=== PATIENT | female | born 1935 | race Caucasian/White ===

== ENCOUNTER → 2019-11-12 | Outpatient (CLI) | payer MEDICARE, OTHER ==
[~2019-11-12] MED LIST: CALC600T4 PO; CARBOPLATIN; FOLI1TAB16 PO; HYDR12.575 PO; LEVO100T5 PO; OMEP20TA63 PO; ONDA8TAB9 PO; TAXOL
--- NOTE | 2019-11-12 09:04 | RAD ---
DUPLEX SONOGRAPHY OF THE PERIPHERAL ARTERIAL SYSTEM OF BOTH LOWER EXTREMITIES Clinical indications: Peripheral vascular disease. Findings: Duplex sonography of the peripheral arterial system of both lower extremities including blood scale and color flow and spectral waveform analysis was performed.Triphasic waveforms are seen. No occlusive disease is seen. No significant plaque formation or stenosis is identified. The measurements were performed using the NASCET criteria. Peak systolic flow velocities are as follows: Right leg: common femoral artery- 100 cm/sec, profunda femoral artery -77 cm/sec, proximal superficial femoral artery -95 cm/sec, mid superficial femoral artery -98 cm/sec, distal superficial femoral artery- 126 cm/sec, popliteal artery -80 cm/sec, proximal posterior tibial artery- 87 cm/sec, distal posterior tibial artery- 73 cm/sec, peroneal artery- 35 cm/sec, anterior tibial artery- 108 cm/sec, dorsalis pedis artery -93 cm/sec. Left leg: common femoral artery- 119 cm/sec, profunda femoral artery -61 cm/sec, proximal superficial femoral artery- 129cm/sec, mid superficial femoral artery- 122 cm/sec, distal superficial femoral artery- 113 cm/sec, popliteal artery -55 cm/sec, proximal posterior tibial artery -113 cm/sec, distal posterior tibial artery- 114 cm/sec, peroneal artery -70 cm/sec, anterior tibial artery -91 cm/sec, dorsalis pedis artery- 122 cm/sec. Impression: No significant peripheral arterial vascular disease is seen by duplex sonographic evaluation. Electronically signed by: Yinka Martinez MD (11/12/2019 9:01 AM) [facility]
--- NOTE | 2019-11-12 13:36 | RAD ---
STUDY: MRI of the left foot without contrast INDICATION: Osteomyelitis evaluation. COMPARISON: None available. TECHNIQUE: Multiplanar MR imaging of the left foot performed without the use of intravenous contrast. FINDINGS: The [id number] extends from the distal aspect of the hindfoot through the forefoot. A few sequences are degraded by motion. Additionally, incomplete fat suppression on the T2-weighted sequences hinders evaluation for marrow edema. Flexion deformities of the toes. Advanced arthrosis at the great toe MTP joint. The medial hallux sesamoid is not identified. Marrow edema involving the proximal phalanx of the fifth toe and potentially be intermediate phalanx as well. This is seen on image 5 series 10. There is a joint effusion at the PIP joint and to a lesser degree at the DIP joint. Subtle cortical discontinuity along the shaft of the proximal phalanx as seen on image 13 series 6 and image 13 series 7. No discrete sinus tract or fluid collection seen adjacent to the fifth toe MTP joint are proximal phalanx though subtle ulcerative changes would be difficult to visualize. Fluid between the second and third and third and fourth metatarsal heads as be seen with intermetatarsal bursitis. Multifocal muscular fatty infiltration as well as edema signal. Scattered subcutaneous edema. IMPRESSION: 1. The study is degraded due to motion artifact on multiple sequences as well as due to incomplete fat suppression. Limited evaluation for a drainable fluid collection given no intravenous contrast. 2. Marrow edema involving the proximal phalanx of the fifth toe which is favored related to a very subtle nondisplaced fracture. Associated small effusions at the adjacent MTP and PIP joints and surrounding soft tissue edema. Osteomyelitis to account for this appearance is considered unlikely as there is no corresponding T1 signal loss at the site of marrow edema or obvious sinus tract or fluid collection adjacent to the bone.. 3. Multiple flexion deformities of the toes without obvious superimposed dislocation. This would be better assessed with weightbearing radiographs. 4. Additional chronic findings as above. Electronically signed by: NITO TAYLOR MD (11/12/2019 1:33 PM) [facility]
== END | disposition home or self-care (01) ==
LOC: US 07:36
PROVIDERS: ATTEND Podiatrist Foot & Ankle Surgery
DX: I73.9 Peripheral vascular disease, unspecified (principal); Z90.89 Acquired absence of other organs; Z90.49 Acquired absence of other specified parts of digestive tract; Z90.710 Acquired absence of both cervix and uterus
CPT/HCPCS: 73718; 93925

== ENCOUNTER → 2019-12-23 | Outpatient (CLI) | payer MEDICARE ==
[~2019-12-23] MED LIST changes: +GADOTERATE 7.5 MMOL/15ML VIAL. IVP ONE
--- NOTE | 2019-12-23 12:01 | RAD ---
EXAM: MRI ABDOMEN WITH AND WITHOUT CONTRAST. HISTORY: Liver lesions, lung cancer. TECHNIQUE: MRI of the abdomen was performed before and after the intravenous administration of 12 mL Dotarem. COMPARISON: 05/28/2019, 03/03/2019. FINDINGS: Liver: Hepatic parenchymal signal loss on opposed phase images indicates mild diffuse hepatic steatosis. A heterogeneous septated and rim-enhancing mass in hepatic segment 2 measures 5.0 x 3.6 cm. This appears increased since 03/03/2019. Another similar focus is noted laterally in segment 6 and measures 2.7 x 1.7 cm and is not clearly changed. Other scattered foci of arterial enhancement in both lobes are not clearly changed and may represent regions of vascular shunting. Other nonenhancing T2 hyperintense lesions are consistent with benign cysts. Biliary tree: The gallbladder is surgically absent. The common duct is not dilated. There are no suspicious pancreatic parenchymal lesions. The pancreatic duct is not dilated. Other findings: A benign cyst at the left renal lower pole measures 3.5 cm. Scarlike posttreatment changes are noted in the right perihilar region. The adrenal glands and spleen are unremarkable. IMPRESSION: 1. A complicated cystic mass in hepatic segment 2 has increased in size since prior studies and is concerning for metastatic deposit. Percutaneous biopsy could confirm this if the diagnosis remains unclear. 2. Other hepatic lesions are indeterminate by characteristics, but are not clearly changed and may represent benign lesions. Recommend attention on further follow-up. Electronically signed by: Michelle Travis MD (12/23/2019 11:58 AM) [facility]
== END | disposition home or self-care (01) ==
LOC: MRI 10:16
PROVIDERS: ATTEND Internal Medicine Hematology & Oncology
DX: N28.1 Cyst of kidney, acquired (principal); K76.0 Fatty (change of) liver, not elsewhere classified; K76.9 Liver disease, unspecified; Z85.118 Personal history of other malignant neoplasm of bronchus and lung
CPT/HCPCS: 74183; A9575

== ENCOUNTER 2019-12-28 06:52 | Outpatient (CLI) | payer MEDICARE ==
[2019-12-28] VITALS (12 sets, daily range): BP systolic 115–146; BP diastolic 67–87
[~2019-12-28] VITALS: Ht 162.6 cm; Wt 61.2 kg
[~2019-12-28 06:52] MED LIST changes: -GADOTERATE 7.5 MMOL/15ML VIAL. IVP ONE
[2019-12-28] MEDS ORDERED: LEVO125T5 PO (07:42)
[2019-12-28] MEDS ORDERED: MULT-246 PO (07:42)
[2019-12-28] MEDS ORDERED: VIT1TABL2 PO (07:42)
[2019-12-28] MEDS ORDERED: TRAM50TA PO (07:42)
[2019-12-28 07:49] LABS: CALCIUM 9.1 mg/dL (8.5-10.1); CREATININE 0.7 mg/dL (0.6-1.0); GFR 80.1; POTASSIUM 3.9 mmol/L (3.5-5.1)
[2019-12-28 07:54] LABS: BASO % 1 % (0-3); EOS # 0.1 x10^3/uL (0.0-0.7); EOS % 2 % (0-3); HEMOGLOBIN 12.9 g/dL (12.0-15.5); LYMPH # 0.4 x10^3/uL (1.0-4.8); LYMPH % 10 % (24-48); MEAN CORPUSCULAR HEMOGLOBIN 30 pg (25-35); MEAN CORPUSCULAR HGB CONC 34 g/dL (31-37); MEAN CORPUSCULAR VOLUME 87 fL (79-100); MONO # 0.3 x10^3/uL (0.0-1.1); MONO % 8 % (0-9); NEUT # 3.1 x10^3/uL (1.8-7.7); NEUT % 79 % (31-73); PLATELET COUNT 192 x10^3/uL (140-400); RED BLOOD COUNT 4.39 x10^6/uL (3.50-5.40); RED CELL DISTRIBUTION WIDTH 15.1 % (11.5-14.5)
[2019-12-28 07:55] LABS: ALBUMIN 3.6 g/dL (3.4-5.0); ALBUMIN/GLOBULIN RATIO 1.1 (1.0-1.7); TOTAL BILIRUBIN 0.4 mg/dL (0.2-1.0); TOTAL PROTEIN 6.9 g/dL (6.4-8.2)
[2019-12-28 08:04] LABS: PROTHROMBIN TIME PATIENT 13.8 SEC (11.7-14.0)
[2019-12-28] MEDS ORDERED: fentaNYL PF VIAL 100 MCG/2 ML VIAL ONE (08:26)
[2019-12-28] MEDS ORDERED: MIDAZOLAM HCL/PF 2 MG/2 ML VIAL. ONE (08:26)
[2019-12-28] MEDS ORDERED: LIDOCAINE WITH 8.4% SOD BICARB 3 ML DISP.SYRIN. ONE (08:27)
[2019-12-28] MEDS ORDERED: GELATIN SPONGE SIZE 12-7MM SPONGE. ONE (08:30)
[2019-12-28] MEDS ORDERED: MIDAZOLAM HCL/PF 2 MG/2 ML VIAL. IV ONE (09:00)
[2019-12-28] MEDS ORDERED: LIDOCAINE WITH 8.4% SOD BICARB 3 ML DISP.SYRIN. IJ ONE (09:00)
[2019-12-28] MEDS ORDERED: fentaNYL PF VIAL 100 MCG/2 ML VIAL IV ONE (09:00)
--- NOTE | 2019-12-28 11:30 | NUR ---
Discharge Note: JESSIE BERMUDEZ Discharge instructions and discharge home medications reviewed with Patient and daughter Elba; and a copy given. All questions have been answered and understanding verbalized. The following instructions and handouts were given: Liver biopsy and post moderate sedation Discontinued lines and drains: Right FA IV DC'd and tip intact. Patient discharged to home with daughter via car. Mid upper abdominal bandaide c/d/i. Pt denies any pain or SOB.
--- NOTE | 2019-12-28 17:08 | RAD ---
Ultrasound-guided biopsy, left hepatic mass 12/28/2019 INDICATION: Left hepatic mass, with irregular enhancement demonstrated on recent MRI. History of lung cancer. Discussion: The procedure was explained in its entirety to the patient or the patients designated chemical sales representative by a member of the treatment team, including a discussion of the risks, benefits and commonly accepted alternatives to the procedure, as well as the expected consequences of no therapy whatsoever. Discussion of the risks included, but was not limited to, those that are most frequent and those that are rare but possibly severe or life-threatening, as well as the possibility of unforeseen complications. All elements of maximal sterile barrier technique including the use of a cap, mask, sterile gown, sterile gloves, large sterile sheet, appropriate hand hygiene, and 2% chlorhexidine for cutaneous antisepsis (or acceptable alternative antiseptic per current guidelines) were followed for this procedure. Ultrasound evaluation demonstrates an irregular mass in the left hepatic lobe, similar to prior imaging exams. The overlying skin was prepped and draped as described. 1% lidocaine was administered for local anesthesia. Under direct ultrasound guidance a 17-gauge needle was advanced to the mass. Core biopsy samples were obtained and placed in formalin. Gelfoam embolization of the biopsy tract was performed as a guiding needle was removed. No immediate complications were identified. The procedures performed under conscious sedation including continuous cardiopulmonary monitoring via dedicated sedation nurse. [id number]-[id number] sedation time: 30 minutes Impression: Ultrasound-guided biopsy, left hepatic mass
--- NOTE | 2020-01-04 14:07 | PATHOLOGY ---
[facility] Accession Number: [id number] . 01 Material submitted: . liver - LIVER MASS CORE BIOPSY . 01 Clinical history: . Liver mass . 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 See comment. (JPM:[facility] 01/04/2020) P 01/04/2020 1034 Local . 02 Comment: Sections of the liver mass CT guided needle biopsy show extensive replacement of liver parenchyma by a malignant neoplasm. The malignant cells have an epitheloid appearance and reside within a focally edematous stroma. The malignant cells have moderate amounts of eosinophilic cytoplasm, and possess enlarged, rounded, ovoid, and irregular moderately pleomorphic hyperchromatic nuclei containing prominent nucleoli. There is focal necrosis and acute inflammation. Mitotic figures are present. There is no evidence of squamous differentiation or gland formation. A panel of immunoperoxidase stains is obtained on block A1 and yields the following results: . Vimentin: Tumor cells positive Cytokeratin BRANDON: Tumor cells negative; hepatocytes positive Cytokeratin 7: Tumor cells negative; residual bile ducts positive Cytokeratin 20: Tumor cells negative CDX2: Tumor cells negative TTF-1: Tumor cells negative Napsin A: Tumor cells negative Hepatocyte specific antigen: Tumor cells negative; residual hepatic parenchyma positive CD68: Tumor cells largely appear negative; inflammatory cells positive CD117: Tumor cells negative Smooth muscle Actin: Tumor cells negative De La Garza-girish Red: Tumor cells negative CD21: Tumor cells negative Synaptophysin: Tumor cells negative . 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 Being unable to further classify the lesion, the case is being forwarded to the [facility] for expert consultation. An addendum report will be issued following their examination. The case is also examined by Dr. Felton, who concurs with the diagnosis. (JPM:pit 01/04/2020) . Special stains performed: Immunoperoxidase stain for vimentin, cytokeratin BRANDON, CK7, CK20, CDX2, TTF-1, napsin A, hepatocyte specific antigen, CD68, CD117, smooth muscle Actin, de la garza-girish red, CD21, and synaptophysin . 02 Electronically signed: . Naeem Suresh MD, Pathologist NPI- [id number] . 01 Gross description: . The specimen is received in formalin, labeled "Grace Rashid, liver biopsy". Received are two needle cores of pale patel soft tissue ranging in length from 1.0 to 1.6 cm in length by 0.1 cm in diameter. The specimen is submitted entirely in cassette A1 and A2. (CAA; 12/28/2019) QA/QA 01/04/2020 1025 Local . 02 Pathologist provided ICD-10: C22.9 . 02 CPT . 245605, L29671, [id number] Specimen Comment: A courtesy copy of this report has been sent to [phone], [phone] Specimen Comment: [id number], Specimen Comment: Report sent to ,DR HAHN / DR PORTER Performed at: 01 [facility] [address], [place], [place] [id number] MD Pastor Joshua MD Phone: [phone] Performed at: 02 [facility] [address] [place], [place] [id number] MD Naeem Suresh MD Phone: [phone]
== END 2019-12-28 11:30 | disposition home or self-care (01) ==
LOC: INTRAD 06:52
PROVIDERS: ATTEND Internal Medicine Hematology & Oncology
DX: R16.0 Hepatomegaly, not elsewhere classified (principal); C22.8 Malignant neoplasm of liver, primary, unspecified as to type; Z85.118 Personal history of other malignant neoplasm of bronchus and lung
CPT/HCPCS: 36415; 47000; 76942; 80053; 85025; 85610; 99152; J2250; J3010